=== PATIENT | male | born 1945 | race Caucasian/White ===

== ENCOUNTER 2018-09-26 18:54 | Inpatient (IN) | payer MEDICARE, OTHER ==
[~2018-09-26] VITALS: Ht 167.6 cm; Wt 89.4 kg
[~2018-09-26 18:54] MED LIST: LEVO500T2 PO
[2018-09-26 21:39] LABS: BASOPHILS % 0.5 % (0.0-2.0); EOSINOPHILS % 3.6 % (0.0-5.0); HEMOGLOBIN. 11.9 g/dL (14.0-18.0); LYMPHOCYTES % 17.5 % (20.0-50.0); MEAN CORPUSCULAR HEMOGLOBIN 30.3 pg (28.0-32.0); MEAN CORPUSCULAR VOLUME 88.8 fL (80.0-94.0); MEAN PLATELET VOLUME 6.9 fl (7.4-10.4); MONOCYTES % 7.4 % (2.0-8.0); PLATELET 347 x1000/uL (130-400); RED BLOOD CELL COUNT 3.94 mill/uL (4.7-6.1); RED CELL DISTRIBUTION WIDTH 14.1 % (11.6-14.6)
[2018-09-26 21:41] LABS: CHLORIDE 105 mEq/L (98-107)
[2018-09-26 21:42] LABS: PROTHROMBIN TIME 10.5 sec (9.6-11.0)
[2018-09-26] MEDS ORDERED: SODIUM CHLORIDE 0.9% 1,000 ML IV ONE (22:42)
[2018-09-26] MEDS ORDERED: VANCOMYCIN 1 G PREMIX 200 ML IV ONE (22:45)
[2018-09-26] MEDS ORDERED: GENTAMICIN 120MG PREMIX 100 ML IV SCH (22:45)
[2018-09-26 23:27] LABS: CLARITY URINE CLEAR (CLEAR); COLOR URINE YELLOW (YELLOW); KETONES URINE NEGATIVE (NEGATIVE); LEUKOCYTE ESTERASE URINE NEGATIVE (NEGATIVE); NITRITE URINE NEGATIVE (NEGATIVE); OCCULT BLOOD URINE NEGATIVE (NEGATIVE); PROTEIN URINE 2+ (NEGATIVE); SPECIFIC GRAVITY URINE 1.009 (1.005-1.030); UROBILINOGEN URINE 0.2 E.U./dL (0.2-1.0)
[2018-09-27] MEDS ORDERED: ACETAMINOPHEN 325MG TABLET PO PRN (02:45)
[2018-09-27] MEDS ORDERED: DEXTROSE 50% WATER 50ML SYRINGE IV PRN (02:45)
[2018-09-27] MEDS ORDERED: LEVOFLOXACIN 500MG PREMIX 100 ML IV SCH (02:45)
[2018-09-27] MEDS ORDERED: DIPHENHYDRAMINE 50MG/ML VIAL IV PRN (02:45)
[2018-09-27] MEDS ORDERED: VANCOMYCIN 1 G PREMIX 200 ML IV SCH (02:45)
[2018-09-27] MEDS ORDERED: ONDANSETRON HCL 4MG/2ML INJ IV PRN (02:45)
[2018-09-27] MEDS ORDERED: KETOROLAC 30MG/ML VIAL IV PRN (02:45)
[2018-09-27] MEDS ORDERED: METF-416 PO (03:53)
[2018-09-27] MEDS ORDERED: GLIP10TA10 PO (03:53)
[2018-09-27] MEDS ORDERED: SULF-288 MT (03:55)
[2018-09-27 04:00] VITALS: BP 125/57
[2018-09-27 04:10] VITALS: BP 154/70
[2018-09-27] MEDS: LEVOFLOXACIN 250MG PREMIX 50 ML IV SCH (06:44)
[2018-09-27] MEDS: SODIUM CHLORIDE 0.9% 1,000 ML IV SCH ×2 (06:44→18:06)
[2018-09-27] MEDS: BLOOD SUGAR DIAGNOSTIC STRIP TEST SCH ×4 (07:20→21:32)
[2018-09-27] MEDS: INSULIN LISPRO 100 UNITS/ML SUBCUT SCH ×4 (07:50→21:38)
[2018-09-27 08:00] VITALS: BP 121/61
[2018-09-27] MEDS: FAMOTIDINE 20MG/2ML VIAL IV SCH (08:59)
[2018-09-27] MEDS ORDERED: FAMOTIDINE 20MG/2ML VIAL IV SCH (09:00)
[2018-09-27 12:00] VITALS: BP 157/71
[2018-09-27] MEDS: VANCOMYCIN 1250MG in DEXTROSE 5% WATER 250ML IV SCH (13:59)
[2018-09-27 16:00] VITALS: BP 151/57
[2018-09-27 20:00] VITALS: BP 140/66
[2018-09-28] VITALS: BP 136/68
[2018-09-28 04:00] VITALS: BP 143/61
[2018-09-28] MEDS: LEVOFLOXACIN 250MG PREMIX 50 ML IV SCH (06:42)
[2018-09-28] MEDS: BLOOD SUGAR DIAGNOSTIC STRIP TEST SCH ×4 (06:45→20:42)
[2018-09-28] MEDS: SODIUM CHLORIDE 0.9% 1,000 ML IV SCH ×2 (06:45→20:33)
[2018-09-28] MEDS: INSULIN LISPRO 100 UNITS/ML SUBCUT SCH ×4 (07:42→20:51)
[2018-09-28 08:00] VITALS: BP 149/70
[2018-09-28] MEDS: FAMOTIDINE 20MG/2ML VIAL IV SCH (09:00)
[2018-09-28 12:00] VITALS: BP 125/60
[2018-09-28] MEDS: VANCOMYCIN 1250MG in DEXTROSE 5% WATER 250ML IV SCH (14:34)
[2018-09-28 16:00] VITALS: BP 158/66
[2018-09-28 20:00] VITALS: BP 131/59
[2018-09-29] VITALS: BP 118/62
[2018-09-29 04:00] VITALS: BP 136/62
[2018-09-29] MEDS: LEVOFLOXACIN 250MG PREMIX 50 ML IV SCH (05:53)
[2018-09-29] MEDS: BLOOD SUGAR DIAGNOSTIC STRIP TEST SCH ×4 (06:20→21:02)
[2018-09-29 07:03] LABS: CHLORIDE 110 mEq/L (98-107)
[2018-09-29 08:00] VITALS: BP 140/62
[2018-09-29] MEDS: FAMOTIDINE 20MG/2ML VIAL IV SCH (08:07)
[2018-09-29] MEDS: INSULIN LISPRO 100 UNITS/ML SUBCUT SCH ×4 (08:31→21:13)
[2018-09-29] MEDS: SODIUM CHLORIDE 0.9% 1,000 ML IV SCH ×2 (11:15→23:26)
[2018-09-29 12:00] VITALS: BP 132/81
[2018-09-29] MEDS: VANCOMYCIN 1 G PREMIX 200 ML IV SCH (12:58)
[2018-09-29 16:00] VITALS: BP 177/78
[2018-09-29 20:00] VITALS: BP 132/66
[2018-09-30] VITALS: BP 132/6
[2018-09-30 04:00] VITALS: BP 148/75
[2018-09-30] MEDS: LEVOFLOXACIN 250MG PREMIX 50 ML IV SCH (05:42)
[2018-09-30] MEDS: BLOOD SUGAR DIAGNOSTIC STRIP TEST SCH ×4 (05:51→21:57)
[2018-09-30 08:00] VITALS: BP_SYST 114; BP_SYST 132; BP_DIAS 63; BP_DIAS 78
[2018-09-30] MEDS: FAMOTIDINE 20MG/2ML VIAL IV SCH (08:07)
[2018-09-30] MEDS: VANCOMYCIN 1 G PREMIX 200 ML IV SCH (08:10)
[2018-09-30] MEDS: INSULIN LISPRO 100 UNITS/ML SUBCUT SCH ×4 (08:15→22:08)
[2018-09-30 12:00] VITALS: BP_SYST 140; BP_SYST 142; BP_DIAS 70; BP_DIAS 76
[2018-09-30] MEDS: SODIUM CHLORIDE 0.9% 1,000 ML IV SCH (13:42)
[2018-09-30 16:00] VITALS: BP_SYST 129; BP_SYST 142; BP_DIAS 57; BP_DIAS 75
[2018-09-30 20:00] VITALS: BP 136/70
[2018-10-01] VITALS (23 sets, daily range): BP systolic 93–150; BP diastolic 56–90
[2018-10-01] MEDS: VANCOMYCIN 1 G PREMIX 200 ML IV SCH ×2 (01:55→21:35)
[2018-10-01] MEDS: SODIUM CHLORIDE 0.9% 1,000 ML IV SCH ×2 (01:55→15:26)
[2018-10-01] MEDS: LEVOFLOXACIN 250MG PREMIX 50 ML IV SCH (05:55)
[2018-10-01] MEDS: BLOOD SUGAR DIAGNOSTIC STRIP TEST SCH ×3 (06:43→20:42)
[2018-10-01] MEDS: INSULIN LISPRO 100 UNITS/ML SUBCUT SCH ×3 (07:50→20:42)
[2018-10-01] MEDS ORDERED: MIDAZOLAM HCL 2 MG/2 ML VIAL ONE (10:59)
[2018-10-01] MEDS ORDERED: FENTANYL CITRATE/PF 50MCG/ML 2ML VIAL ONE (11:00)
[2018-10-01] MEDS ORDERED: IODIXANOL 320MG/ML 100 ML BOTTLE IV ONE (11:00)
[2018-10-01] MEDS ORDERED: LIDOCAINE HCL 1% 20ML VIAL (Pyxis) INJ ONE (11:01)
[2018-10-01] MEDS ORDERED: IOHEXOL-300 100 ML BOTTLE ONE (11:53)
[2018-10-01] MEDS ORDERED: HYDRALAZINE 20MG/ML VIAL ONE (12:52)
[2018-10-01] MEDS ORDERED: HYDRALAZINE 20MG/ML VIAL IV ONE (13:00)
[2018-10-01] MEDS ORDERED: HEPARIN SODIUM 1,000 UNIT/1ML VIAL IV ONE (13:36)
[2018-10-02] VITALS (16 sets, daily range): BP systolic 115–186; BP diastolic 44–134
[2018-10-02 06:30] LABS: BASOPHILS % 0.6 % (0.0-2.0); EOSINOPHILS % 3.3 % (0.0-5.0); HEMATOCRIT. 36.5 % (42.0-52.0); HEMOGLOBIN. 12.4 g/dL (14.0-18.0); LYMPHOCYTES % 15.1 % (20.0-50.0); MEAN CORPUSCULAR HEMOGLOBIN 30.3 pg (28.0-32.0); MEAN CORPUSCULAR VOLUME 89.5 fL (80.0-94.0); MEAN PLATELET VOLUME 6.8 fl (7.4-10.4); MONOCYTES % 6.7 % (2.0-8.0); NEUTROPHILS % 74.3 % (40.0-76.0); PLATELET 357 x1000/uL (130-400); RED BLOOD CELL COUNT 4.08 mill/uL (4.7-6.1)
[2018-10-02] MEDS: LEVOFLOXACIN 250MG PREMIX 50 ML IV SCH (06:38)
[2018-10-02] MEDS: SODIUM CHLORIDE 0.9% 1,000 ML IV SCH (06:38)
[2018-10-02] MEDS: BLOOD SUGAR DIAGNOSTIC STRIP TEST SCH ×3 (06:38→16:50)
[2018-10-02] MEDS: INSULIN LISPRO 100 UNITS/ML SUBCUT SCH ×3 (07:20→17:14)
[2018-10-02] MEDS: FAMOTIDINE 20MG/2ML VIAL IV SCH (07:59)
[2018-10-02] MEDS: VANCOMYCIN 1 G PREMIX 200 ML IV SCH (15:08)
== END 2018-10-02 18:55 | disposition home or self-care (01) | DRG 253 ==
LOC: ER 18:54 → 6EST 09-27 02:08 → EDBEDREQTM 09-27 02:17 → EDBEDREQ 09-27 02:17 → EDBEDREQDT 09-27 02:17 → ENRESERV 09-27 02:54 → 3WST 10-01 12:33
PROVIDERS: ADMIT Internal Medicine; ATTEND Internal Medicine
PROC: 047S3ZZ Dilation of Left Posterior Tibial Artery, Percutaneous Approach (ICD-10-PCS; principal; 2018-10-01)
PROC: 047W3ZZ Dilation of Left Foot Artery, Percutaneous Approach (ICD-10-PCS; 2018-10-01)
PROC: B41G1ZZ Fluoroscopy of Left Lower Extremity Arteries using Low Osmolar Contrast (ICD-10-PCS; 2018-10-01)
DX: I70.262 Atherosclerosis of native arteries of extremities with gangrene, left leg (principal); L03.90 Cellulitis, unspecified; L97.528 Non-pressure chronic ulcer of other part of left foot with other specified severity; E11.52 Type 2 diabetes mellitus with diabetic peripheral angiopathy with gangrene; I96 Gangrene, not elsewhere classified; E11.40 Type 2 diabetes mellitus with diabetic neuropathy, unspecified; E11.42 Type 2 diabetes mellitus with diabetic polyneuropathy; E11.628 Type 2 diabetes mellitus with other skin complications; E78.5 Hyperlipidemia, unspecified; I10 Essential (primary) hypertension; Z88.0 Allergy status to penicillin
CPT/HCPCS: 36415; 37228; 71045; 73620; 75710; 80048; 80202; 82962; 83605; 84145; 84484; 85347; 93005; 96365; 96375; 99285; C1725; C1760; C1769; C1887; C1893; C1894; J0360; J1580; J1644; J1815; J1956; J2250; J3010; J3370; J3490; J7030; J7060; Q9967

== ENCOUNTER 2022-02-28 14:51 | Inpatient (IN) | payer MEDICARE, OTHER ==
[~2022-02-28] VITALS: Ht 167.6 cm; Wt 83.9 kg
[~2022-02-28 14:51] MED LIST changes: +GLIP10TA10 PO; +METF-416 PO; +SULF-13 MT
[2022-02-28] MEDS ORDERED: ASPIRIN 325MG EC TABLET PO ONE (19:00)
[2022-02-28] MEDS ORDERED: VANCOMYCIN 1G PREMIX 200 ML IV SCH (19:00)
[2022-02-28] MEDS ORDERED: CEFTRIAXONE 1 G PREMIX 50 ML IV ONE (19:00)
[2022-02-28 19:28] LABS: BASOPHILS % 0.4 % (0.0-2.0); EOSINOPHILS % 2.5 % (0.0-5.0); HEMATOCRIT. 38.4 % (42.0-52.0); HEMOGLOBIN. 13.2 g/dL (14.0-18.0); LYMPHOCYTES % 13.6 % (20.0-50.0); MEAN CORPUSCULAR VOLUME 93.2 fL (80.0-94.0); MEAN PLATELET VOLUME 6.9 fl (7.4-10.4); MONOCYTES % 6.6 % (2.0-8.0); NEUTROPHILS % 76.9 % (40.0-76.0); PLATELET 294 x1000/uL (130-400); RED BLOOD CELL COUNT 4.12 mill/uL (4.7-6.1); RED CELL DISTRIBUTION WIDTH 12.9 % (11.6-14.6)
[2022-02-28 19:36] LABS: CHLORIDE 103 mEq/L (98-107)
[2022-02-28 19:40] LABS: PARTIAL THROMBOPLASTIN TIME 36.8 sec (23.4-31.0); PROTHROMBIN TIME 10.8 sec (9.6-11.0)
[2022-02-28] MEDS ORDERED: HEPARIN IV NR (21:00)
[2022-02-28] MEDS ORDERED: HEPARIN 25,000 UNITS PREMIX 250 ML IV SCH (21:00)
[2022-02-28] MEDS ORDERED: [UNRECOGNIZED DRUG - OTHER] IV NR (21:00)
[2022-02-28] MEDS ORDERED: CEFTRIAXONE 1 G PREMIX 50 ML IV NR (22:15)
[2022-02-28] MEDS ORDERED: ASPIRIN 325MG EC TABLET PO NR (22:15)
[2022-02-28] MEDS ORDERED: IOHEXOL-350 100 ML BOTTLE ONE (22:50)
[2022-03-01] MEDS ORDERED: MAGNESIUM/ALUMINUM HYDROXIDE/SIMETHICONE 30ML UDC PO PRN (01:45)
[2022-03-01] MEDS ORDERED: CLONIDINE 0.1MG TABLET PO PRN (01:45)
[2022-03-01] MEDS ORDERED: ONDANSETRON HCL 4MG/2ML INJ IV PRN (01:45)
[2022-03-01] MEDS ORDERED: ACETAMINOPHEN 325MG TABLET PO PRN ×2 (01:45)
[2022-03-01] MEDS ORDERED: DIPHENHYDRAMINE 50MG/ML VIAL IV PRN (01:45)
[2022-03-01] MEDS ORDERED: ZOLPIDEM TARTRATE 5MG TABLET PO PRN (01:45)
[2022-03-01] MEDS ORDERED: HEPARIN BOLUS PRN aPTT <36 IV (03:00)
[2022-03-01] MEDS ORDERED: HEPARIN BOLUS PRN aPTT 37-44 IV (03:00)
[2022-03-01] MEDS: SODIUM CHLORIDE 0.9% INJ 3ML FLUSH IVF SCH ×3 (06:00→21:19)
[2022-03-01 08:00] VITALS: BP 143/58
[2022-03-01 09:00] VITALS: BP 143/98
[2022-03-01] MEDS ORDERED: PNEUMOCOCCAL 23-VAL P-SAC VAC 0.5 ML IM ONE (11:30)
[2022-03-01 12:00] VITALS: BP 148/58
[2022-03-01] MEDS ORDERED: SITA100T11 PO (13:35)
[2022-03-01] MEDS ORDERED: FINE10TA PO (13:37)
[2022-03-01] MEDS ORDERED: TAMS-11 PO (13:37)
[2022-03-01] MEDS ORDERED: ATOR40TA70 PO (13:37)
[2022-03-01] MEDS ORDERED: METF-416 PO (13:38)
[2022-03-01] MEDS ORDERED: GLIP10TA10 PO (13:41)
[2022-03-01] MEDS ORDERED: BENA-8 PO (13:42)
[2022-03-01] MEDS: ENOXAPARIN 80MG/0.8ML SYR SUBCUT SCH ×2 (13:57→23:22)
[2022-03-01 16:00] VITALS: BP 116/62
[2022-03-01] MEDS ORDERED: DEXTROSE 50% WATER 50ML SYRINGE IV PRN (17:30)
[2022-03-01 20:00] VITALS: BP 149/64
[2022-03-01] MEDS: INSULIN LISPRO 100 UNITS/ML SUBCUT SCH (20:49)
[2022-03-01] MEDS: BLOOD SUGAR DIAGNOSTIC STRIP TEST SCH (20:49)
[2022-03-02] VITALS: BP 128/69
[2022-03-02 04:00] VITALS: BP 156/82
[2022-03-02] MEDS: SODIUM CHLORIDE 0.9% INJ 3ML FLUSH IVF SCH ×3 (06:00→21:11)
[2022-03-02] MEDS: BLOOD SUGAR DIAGNOSTIC STRIP TEST SCH ×4 (06:44→20:47)
[2022-03-02 07:40] LABS: BASOPHILS % 0.6 % (0.0-2.0); EOSINOPHILS % 4.8 % (0.0-5.0); HEMATOCRIT. 40.9 % (42.0-52.0); HEMOGLOBIN. 14.1 g/dL (14.0-18.0); LYMPHOCYTES % 21.9 % (20.0-50.0); MEAN CORPUSCULAR VOLUME 92.9 fL (80.0-94.0); MEAN PLATELET VOLUME 7.4 fl (7.4-10.4); MONOCYTES % 5.3 % (2.0-8.0); NEUTROPHILS % 67.4 % (40.0-76.0); PLATELET 355 x1000/uL (130-400); RED CELL DISTRIBUTION WIDTH 12.7 % (11.6-14.6)
[2022-03-02] MEDS: INSULIN LISPRO 100 UNITS/ML SUBCUT SCH ×4 (07:50→21:10)
[2022-03-02 08:00] VITALS: BP 168/74
[2022-03-02 12:00] VITALS: BP 155/79
[2022-03-02] MEDS: ENOXAPARIN 80MG/0.8ML SYR SUBCUT SCH (12:14)
[2022-03-02 16:00] VITALS: BP 132/57
[2022-03-02 20:00] VITALS: BP 138/67
[2022-03-03] VITALS (7 sets, daily range): BP systolic 118–155; BP diastolic 60–70
[2022-03-03] MEDS: SODIUM CHLORIDE 0.9% INJ 3ML FLUSH IVF SCH ×3 (06:00→22:00)
[2022-03-03] MEDS: BLOOD SUGAR DIAGNOSTIC STRIP TEST SCH ×4 (06:30→20:37)
[2022-03-03] MEDS: INSULIN LISPRO 100 UNITS/ML SUBCUT SCH ×4 (07:50→20:38)
[2022-03-03] MEDS ORDERED: IODIXANOL 320MG/ML 100 ML BOTTLE IV ONE (11:33)
[2022-03-03] MEDS ORDERED: LIDOCAINE HCL/PF 1% 10 MG/ML 5ML VIAL ONE (11:33)
[2022-03-03] MEDS ORDERED: FENTANYL CITRATE/PF 50MCG/ML 2ML VIAL ONE (11:53)
[2022-03-03] MEDS ORDERED: MIDAZOLAM HCL 2 MG/2 ML VIAL ONE (11:54)
[2022-03-03] MEDS: ENOXAPARIN 80MG/0.8ML SYR SUBCUT SCH ×2 (12:00)
[2022-03-03] MEDS ORDERED: HEPARIN 1000 UNITS/ML 10ML ONE (12:33)
[2022-03-03] MEDS ORDERED: HYDRALAZINE 20MG/ML VIAL ONE (12:56)
[2022-03-03] MEDS: CLOPIDOGREL 75MG TABLET PO SCH (13:15)
[2022-03-04] VITALS: BP 120/60
[2022-03-04 04:00] VITALS: BP 148/68
[2022-03-04] MEDS: SODIUM CHLORIDE 0.9% INJ 3ML FLUSH IVF SCH ×3 (06:00→22:18)
[2022-03-04] MEDS: BLOOD SUGAR DIAGNOSTIC STRIP TEST SCH ×4 (07:07→21:00)
[2022-03-04] MEDS: INSULIN LISPRO 100 UNITS/ML SUBCUT SCH ×4 (07:50→23:09)
[2022-03-04 08:00] VITALS: BP 140/59
[2022-03-04] MEDS: CLOPIDOGREL 75MG TABLET PO SCH (08:27)
[2022-03-04] MEDS: ENOXAPARIN 80MG/0.8ML SYR SUBCUT SCH ×2 (09:41→22:17)
[2022-03-04 12:00] VITALS: BP 110/71
[2022-03-04 16:00] VITALS: BP 138/68
[2022-03-04 20:00] VITALS: BP 138/67
[2022-03-05] VITALS (7 sets, daily range): BP systolic 109–147; BP diastolic 55–81
[2022-03-05] MEDS: INSULIN LISPRO 100 UNITS/ML SUBCUT SCH ×4 (07:43→20:39)
[2022-03-05] MEDS: SODIUM CHLORIDE 0.9% INJ 3ML FLUSH IVF SCH ×3 (07:43→20:36)
[2022-03-05] MEDS: BLOOD SUGAR DIAGNOSTIC STRIP TEST SCH ×4 (07:43→20:35)
[2022-03-05] MEDS: ENOXAPARIN 80MG/0.8ML SYR SUBCUT SCH ×2 (08:22→20:35)
[2022-03-05] MEDS: CLOPIDOGREL 75MG TABLET PO SCH (08:22)
[2022-03-06 00:56] VITALS: BP 152/81
[2022-03-06] MEDS: SODIUM CHLORIDE 0.9% INJ 3ML FLUSH IVF SCH ×3 (06:49→21:17)
[2022-03-06 07:01] VITALS: BP 152/69
[2022-03-06] MEDS: BLOOD SUGAR DIAGNOSTIC STRIP TEST SCH ×4 (07:20→21:17)
[2022-03-06 08:00] VITALS: BP 90/51
[2022-03-06] MEDS: CLOPIDOGREL 75MG TABLET PO SCH (09:08)
[2022-03-06] MEDS: ENOXAPARIN 80MG/0.8ML SYR SUBCUT SCH ×2 (09:08→21:17)
[2022-03-06] MEDS: INSULIN LISPRO 100 UNITS/ML SUBCUT SCH ×4 (09:13→21:20)
[2022-03-06 12:00] VITALS: BP 108/57
[2022-03-06 15:53] VITALS: BP 98/58
[2022-03-06 20:00] VITALS: BP 159/71
[2022-03-07] VITALS: BP 141/67
[2022-03-07 04:00] VITALS: BP 156/69
[2022-03-07] MEDS: SODIUM CHLORIDE 0.9% INJ 3ML FLUSH IVF SCH ×3 (06:10→22:00)
[2022-03-07] MEDS: INSULIN LISPRO 100 UNITS/ML SUBCUT SCH ×4 (07:50→21:00)
[2022-03-07 08:00] VITALS: BP 109/65
[2022-03-07] MEDS: BLOOD SUGAR DIAGNOSTIC STRIP TEST SCH ×4 (08:06→21:00)
[2022-03-07] MEDS: CLOPIDOGREL 75MG TABLET PO SCH (09:00)
[2022-03-07] MEDS: ENOXAPARIN 80MG/0.8ML SYR SUBCUT SCH ×2 (09:00→21:00)
[2022-03-07 12:00] VITALS: BP 164/79
[2022-03-07] MEDS ORDERED: LIDOCAINE HCL 1% 10 MG/ML 10ML VIAL ONE (14:41)
[2022-03-07] MEDS ORDERED: BUPIVACAINE HCL/PF 0.25% (2.5MG/ML) 10ML ONE (14:41)
[2022-03-07] MEDS ORDERED: PROPOFOL 200MG/20ML VIAL IV ONE (15:58)
[2022-03-07] MEDS ORDERED: MIDAZOLAM HCL 2 MG/2 ML VIAL ONE (15:59)
[2022-03-07] MEDS ORDERED: FENTANYL CITRATE/PF 50MCG/ML 2ML VIAL ONE (15:59)
[2022-03-07] MEDS ORDERED: POLYMYXIN B SULFATE 500000 UNITS/VIAL ONE (17:06)
[2022-03-07] MEDS ORDERED: LABETALOL HCL 5MG/ML VIAL 20ML IV ONE (17:43)
[2022-03-07] MEDS ORDERED: LABETALOL 5MG/ML SYR 20 MG/4 ML SYRINGE IV PRN (17:45)
[2022-03-07] MEDS ORDERED: MEPERIDINE HCL/PF 25MG/ML CPJ IV PRN (17:45)
[2022-03-07] MEDS ORDERED: HYDROMORPHONE HCL/PF 2MG/ML CPJ IV PRN (17:45)
[2022-03-07] MEDS ORDERED: HYDRALAZINE 20MG/ML VIAL IV NR ×2 (19:25→19:45)
[2022-03-07] MEDS ORDERED: LOSARTAN POTASSIUM 50 MG TABLET PO NR (20:45)
[2022-03-07] MEDS: ONDANSETRON HCL 4MG/2ML INJ IV PRN ×2 (21:41→22:30)
[2022-03-08] VITALS: BP 129/53
[2022-03-08 04:02] VITALS: BP 107/50
[2022-03-08] MEDS: SODIUM CHLORIDE 0.9% INJ 3ML FLUSH IVF SCH ×2 (05:30→13:31)
[2022-03-08] MEDS: BLOOD SUGAR DIAGNOSTIC STRIP TEST SCH ×2 (06:33→13:00)
[2022-03-08 08:30] VITALS: BP 122/51
[2022-03-08] MEDS: ENOXAPARIN 80MG/0.8ML SYR SUBCUT SCH (09:25)
[2022-03-08] MEDS: INSULIN LISPRO 100 UNITS/ML SUBCUT SCH ×2 (09:26→13:30)
[2022-03-08] MEDS: CLOPIDOGREL 75MG TABLET PO SCH (09:26)
[2022-03-08 12:10] VITALS: BP 106/55
[2022-03-08] MEDS ORDERED: HYDR-4001 MT (13:38)
[2022-03-08] MEDS ORDERED: SULF1TAB48 MT (13:38)
[2022-03-08 15:39] VITALS: BP 148/62
[2022-03-08 15:44] VITALS: BP 148/62
== END 2022-03-08 18:18 | disposition home or self-care (01) | DRG 252 ==
LOC: ER 14:51 → MICUSO 22:57 → EDBEDREQ 23:03 → EDBEDREQTM 23:03 → 6EST 03-01 03:47 → 6WST 03-07 22:13
PROVIDERS: ADMIT Internal Medicine; ATTEND Internal Medicine
PROC: 047Q3ZZ Dilation of Left Anterior Tibial Artery, Percutaneous Approach (ICD-10-PCS; principal; 2022-03-03)
PROC: 047U3ZZ Dilation of Left Peroneal Artery, Percutaneous Approach (ICD-10-PCS; 2022-03-03)
PROC: 047N3ZZ Dilation of Left Popliteal Artery, Percutaneous Approach (ICD-10-PCS; 2022-03-03)
PROC: 0Y6S0Z0 Detachment at Left 2nd Toe, Complete, Open Approach (ICD-10-PCS; 2022-03-07)
PROC: 0Q9R0ZZ Drainage of Left Toe Phalanx, Open Approach (ICD-10-PCS; 2022-03-07)
DX: E11.52 Type 2 diabetes mellitus with diabetic peripheral angiopathy with gangrene (principal); N17.0 Acute kidney failure with tubular necrosis; E44.0 Moderate protein-calorie malnutrition; E87.1 Hypo-osmolality and hyponatremia; I70.262 Atherosclerosis of native arteries of extremities with gangrene, left leg; Z20.822 Contact with and (suspected) exposure to COVID-19; I25.10 Atherosclerotic heart disease of native coronary artery without angina pectoris; E11.22 Type 2 diabetes mellitus with diabetic chronic kidney disease; I12.9 Hypertensive chronic kidney disease with stage 1 through stage 4 chronic kidney disease, or unspecified chronic kidney disease; N18.9 Chronic kidney disease, unspecified; E11.40 Type 2 diabetes mellitus with diabetic neuropathy, unspecified; Z68.29 Body mass index [BMI] 29.0-29.9, adult; Z88.0 Allergy status to penicillin; Z79.899 Other long term (current) drug therapy; Z79.02 Long term (current) use of antithrombotics/antiplatelets; Z79.4 Long term (current) use of insulin; Z89.422 Acquired absence of other left toe(s)
CPT/HCPCS: 36415; 37228; 37232; 73630; 73706; 75710; 80048; 80053; 82962; 83036; 85025; 87426; 88305; 88311; 90732; 93005; 93922; 97162; 99285; C1725; C1760; C1769; C1893; C1894; J0360; J0696; J1170; J1644; J1650; J1815; J2250; J2405; J2704; J3010; J3370; J3490; Q9967

== ENCOUNTER 2023-06-29 12:32 | Emergency (ER) | payer OTHER ==
[~2023-06-29] VITALS: Ht 170.2 cm; Wt 91.0 kg
[~2023-06-29 12:32] MED LIST changes: +ATOR40TA70 PO; +BENA-8 PO; +FINE10TA PO; +HYDR-4001 MT; -LEVO500T2 PO; -METF-416 PO; +SITA100T11 PO; -SULF-13 MT; +SULF1TAB48 MT; +TAMS-11 PO
[2023-06-29 12:40] VITALS: O2SAT 99
[2023-06-29] MEDS: BACITRACIN ZINC OINT UDPKT TOP ONE (14:30)
[2023-06-29] MEDS: TETANUS, DIPHTHERIA, PERTUSSIS VAC/PF 0.5ML (>10YR OLD) IM ONE (14:30)
[2023-06-29] MEDS: ACETAMINOPHEN 325MG TABLET PO ONE (14:30)
[2023-06-29] MEDS: LIDOCAINE HCL/PF 1% 10 MG/ML 5ML VIAL INFIL ONE (14:30)
[2023-06-29 16:44] VITALS: BP 168/78; PULSE 89; RESP 16; TEMP 98
== END 2023-06-29 16:45 | disposition home or self-care (01) ==
LOC: ER 13:04
DX: S33.5XXA Sprain of ligaments of lumbar spine, initial encounter (principal); S09.90XA Unspecified injury of head, initial encounter; E11.9 Type 2 diabetes mellitus without complications; I10 Essential (primary) hypertension; Z88.0 Allergy status to penicillin; Z79.899 Other long term (current) drug therapy; W11.XXXA Fall on and from ladder, initial encounter; Y93.89 Activity, other specified; Y92.89 Other specified places as the place of occurrence of the external cause; Y99.8 Other external cause status
CPT/HCPCS: 99285; 70450; 72125; 72131; 90715; 90471; J3490